=== PATIENT | female | born 1955 | race Caucasian/White ===

== ENCOUNTER 2021-05-18 14:02 | Outpatient (CLI) | payer BC | END 2021-05-18 14:03 | disposition home or self-care (01) | LOC: SCSRAD 14:02 | PROVIDERS: ATTEND Nurse Practitioner Acute Care | DX: M79.644 Pain in right finger(s) (principal) | CPT/HCPCS: 80307; 80326; 80331; 80334; 80337; 80341; 80344; 80346; 80348; 80353; 80354; 80355; 80357; 80358; 80359; 80360; 80361; 80364; 80365; 80366; 80367; 80368; 80370; 80371; 80372; 80377 ==